=== PATIENT | male | born 1955 | race Two or more races ===

== ENCOUNTER 2018-05-06 06:53 | Day surgery (SDC) | payer OTHER ==
[2018-05-06] MEDS ORDERED: SEVOFLURANE 250 ML BOTTLE IH ONE (06:54)
[2018-05-06] MEDS ORDERED: ONDANSETRON 4 MG/2 ML VIAL IV ONE (06:54)
[2018-05-06] MEDS ORDERED: DEXAMETHASONE SOD PHOSPHATE 4 MG INJ IV ONE (06:54)
[2018-05-06] MEDS ORDERED: PROPOFOL 200 MG/20 ML BOTTLE IV ONE (06:54)
[2018-05-06] MEDS ORDERED: CEFAZOLIN 1 G VIAL MC ONE (06:54)
[2018-05-06] MEDS ORDERED: FENTANYL CITRATE 100 MCG/2 ML AMPUL ONE (08:20)
[2018-05-06] MEDS ORDERED: MIDAZOLAM HCL 2 MG/2 ML VIAL ONE (08:20)
[2018-05-06] MEDS ORDERED: SUCCINYLCHOLINE CHLORIDE 200 MG/10 ML VIAL ONE (08:20)
[2018-05-06] MEDS ORDERED: MORPHINE SULFATE PF 10 MG/10 ML AMPUL IV ONE (08:47)
[2018-05-06] MEDS ORDERED: BUPIVACAINE 0.25% 30 ML VIAL ONE (08:47)
[2018-05-06] MEDS ORDERED: HYDROCODONE/APAP 5-325MG TABLET ONE (10:36)
== END 2018-05-06 11:20 | disposition home or self-care (01) ==
LOC: DS 06:53
PROVIDERS: ATTEND Orthopaedic Surgery
DX: M23.242 Derangement of anterior horn of lateral meniscus due to old tear or injury, left knee (principal); M65.862 Other synovitis and tenosynovitis, left lower leg; M94.262 Chondromalacia, left knee
CPT/HCPCS: 29876; 29881; A4663; J0330; J0690; J1100; J2250; J2274; J2405; J3010; J3490 ×2; J7120